=== PATIENT | female | born 1950 | race Caucasian/White ===

== ENCOUNTER 2017-04-07 21:31 | Emergency (ER) | payer OTHER ==
[2017-04-07 21:41] VITALS: PULSE 78; TEMP 97.9; O2SAT 96
--- NOTE | 2017-04-07 22:14 | EDPHY ---
H & P Stated Complaint: forehead LAC Time Seen by Provider: 04/07/17 21:58 HPI/ROS: Chief Complaint: Head laceration HPI: 67-year-old woman [place]. She struck her head on a sharp and sustained a laceration. She had no loss of consciousness. She is not on any blood thinning medications. She has no headache. She has no neck pain or numbness or weakness. She is up-to- date in her tetanus. No nausea or vomiting. ROS: 10 point Review of Systems is negative except as noted in the HPI. PMH: Hypertension, hyperlipidemia Social History: No smoking, occasional alcohol, no recreational drug use Family History: non-contributory Physical Exam: Gen: Awake, Alert, No Distress HEENT: There is a 7 mm laceration above her right eyebrow. No active bleeding , no bony tenderness or step-offs, no ecchymosis. Nose: no rhinorrhea Eyes: PERRLA, EOMI Mouth: Moist mucosa Neck: Supple, no JVD Chest: nontender, lungs clear to auscultation Heart: S1, S2 normal, no murmur Abd: Soft, non-tender, no guarding Back: no CVA tenderness, no midline tenderness Ext: no edema, non-tender Skin: no rash Neuro: CN II-XII intact, Sensation grossly intact, Strength 5/5 in bilateral upper and lower extremities - Personal History Current Tetanus Diphtheria and Acellular Pertussis (TDAP): Yes - Medical/Surgical History Hx Asthma: No Hx Chronic Respiratory Disease: No Hx Diabetes: No Hx Cardiac Disease: Yes Hx Renal Disease: No Hx Cirrhosis: No Hx Alcoholism: No Hx HIV/AIDS: No Hx Splenectomy or Spleen Trauma: No Other PMH: high cholesterol, hypertension, spinal stenosis - Social History Smoking Status: Never smoked Constitutional: Initial Vital Signs Temperature (C) 36.6 C 04/07/17 21:37 Heart Rate 78 04/07/17 21:37 Respiratory Rate 20 04/07/17 21:37 Blood Pressure 146/101 H 04/07/17 21:37 O2 Sat (%) 96 04/07/17 21:37 O2 Delivery Mode Room Air Allergies/Adverse Reactions: Sulfa (Sulfonamide Antibiotics) Allergy (Verified 04/07/17 21:36) Home Medications: Medication Instructions Recorded Aspirin 81mg (*) 04/07/17 Atorvastatin Calcium 04/07/17 Lotensin 04/07/17 Medical Decision Making Procedures: Procedure: Laceration repair. Verbal consent was obtained from the patient. The 7 mm laceration on the right forehead was anesthetized in the usual fashion. The wound was irrigated, draped and explored to its base with a gloved finger. There were no deep structures involved. No tendon injury was identified. The wound was repaired with 2, 6-0 Ethilon simple interrupted sutures. The wound repair was uncomplicated. The procedure was performed by myself. ED Course/Re-evaluation: 67-year-old with forehead laceration status post fall. She is not on blood thinners. She does not have a headache. No other neurologic symptoms. Lacerations been repaired. She has been given wound care instructions. Departure - Departure Disposition: Home, Routine, Self-Care Clinical Impression: Laceration Condition: Good Instructions: Care For Your Stitches (ED), Facial Laceration (ED) Additional Instructions: Sutures need to be removed in 5 days. Return to the emergency depart for increasing redness, fevers, chills, discharge from the wound, or any other concerns. Referrals: JORDON BOOGIE [Other] - As per Instructions
[2017-04-07 22:49] VITALS: BP 151/77; RESP 18
== END 2017-04-07 22:49 | disposition home or self-care (01) ==
PROC: 0HQ1XZZ Repair Face Skin, External Approach (ICD-10-PCS; principal; 2017-04-07)
DX: S01.81XA Laceration without foreign body of other part of head, initial encounter (principal); I10 Essential (primary) hypertension; W01.198A Fall on same level from slipping, tripping and stumbling with subsequent striking against other object, initial encounter; Y92.520 Airport as the place of occurrence of the external cause